=== PATIENT | male | born 1980 | race Hispanic/Latino ===

== ENCOUNTER → 2023-06-28 | Outpatient (CLI) | payer MEDICAID, MEDICARE ==
[2023-06-28 22:52] VITALS: PULSE 93; RESP 20
[2023-06-28 23:25] VITALS: PULSE 87; RESP 20
[2023-06-29] VITALS (11 sets, daily range): PULSE 70–104; RESP 12–20
== END | disposition home or self-care (01) ==
LOC: EDUNIT# 04-03 20:30 → SLP 19:58
PROVIDERS: ATTEND Otolaryngology
DX: G47.33 Obstructive sleep apnea (adult) (pediatric) (principal)
CPT/HCPCS: 95810

== ENCOUNTER → 2023-07-05 | Outpatient (CLI) | payer MEDICAID, MEDICARE ==
[2023-07-05] VITALS (8 sets, daily range): PULSE 69–95; RESP 18–25
[2023-07-06] VITALS (13 sets, daily range): PULSE 55–75; RESP 20–23
== END | disposition home or self-care (01) ==
LOC: SLP 20:31
PROVIDERS: ATTEND Otolaryngology
DX: G47.33 Obstructive sleep apnea (adult) (pediatric) (principal)
CPT/HCPCS: 95811